=== PATIENT | female | born 1965 | race Caucasian/White ===

== ENCOUNTER 2021-09-11 17:23 | Emergency (ER) | payer BC ==
[~2021-09-11] VITALS: Ht 177.8 cm; Wt 116.6 kg
[2021-09-11] MEDS ORDERED: PREDNISONE 20 MG TAB PO STA (17:36)
[2021-09-11] MEDS ORDERED: EPINEPHRINE HCL 1:1000 1ML 1 MG/ML AMP INJ STA (17:36)
[2021-09-11] MEDS ORDERED: DIPHENHYDRAMINE HCL 25 MG CAP PO STA (17:36)
[2021-09-11] MEDS ORDERED: PEPCID20 MG PO (18:20)
[2021-09-11] MEDS ORDERED: HYDROXYZINE HCL25 MG PO (18:20)
== END 2021-09-11 18:23 | disposition home or self-care (01) ==
LOC: ER 17:40
DX: T78.3XXA Angioneurotic edema, initial encounter (principal); T78.40XA Allergy, unspecified, initial encounter; J44.9 Chronic obstructive pulmonary disease, unspecified; F43.10 Post-traumatic stress disorder, unspecified
CPT/HCPCS: 99283; J0171; J7512